=== PATIENT | female | born 1955 | race Caucasian/White ===

== ENCOUNTER 2018-08-02 11:04 | Outpatient (CLI) | payer OTHER ==
[2015-05-20 11:18] VITALS: O2SAT 100
== END 2018-08-02 11:05 | disposition home or self-care (01) | DRG 556 ==
LOC: CONVCARE 11:04
PROVIDERS: ATTEND Orthopaedic Surgery
DX: M25.562 Pain in left knee (principal); M25.561 Pain in right knee; M76.51 Patellar tendinitis, right knee; M76.52 Patellar tendinitis, left knee
CPT/HCPCS: 73560; 73565